=== PATIENT | female | born 1975 | race African-American/Black ===

== ENCOUNTER 2016-11-20 08:37 | Emergency (ER) | payer MEDICARE, MEDICAID ==
[~2016-11-20] VITALS: Ht 170.2 cm; Wt 93.0 kg
[2016-11-20 08:54] VITALS: BP 119/80
== END 2016-11-20 09:31 | disposition home or self-care (01) ==
LOC: ER 08:37
DX: J02.9 Acute pharyngitis, unspecified (principal); E11.9 Type 2 diabetes mellitus without complications; I10 Essential (primary) hypertension; F17.210 Nicotine dependence, cigarettes, uncomplicated

== ENCOUNTER 2018-08-11 07:27 | Emergency (ER) | payer MEDICAID, MEDICARE ==
[~2018-08-11] VITALS: Ht 170.2 cm; Wt 83.9 kg
[2018-08-11 07:49] LABS: Urine Bacteria FEW /hpf (None Seen); Urine Blood Negative /uL (Negative); Urine Specific Gravity 1.011 (1.001-1.035); Urine WBC 3 /hpf (0 - 5)
[2018-08-11 08:51] LABS: Basophils # (auto) 0 uL; Basophils % (auto) 0.5 % (0.0-2.0); Eosinophils # (auto) 0.1 uL; Eosinophils % (auto) 1.5 % (0.0-7.0); Hematocrit 37.9 % (36.0-46.0); Hemoglobin 12.8 g/dL (12.2-16.2); Lymphocytes # (auto) 1.3 uL; Lymphocytes % (auto) 24.8 % (10.0-50.0); Mean Corpuscular Hemoglobin 30.6 pg (28.0-32.0); Mean Corpuscular Hgb Conc. 33.6 g/dL (32.0-36.0); Mean Corpuscular Volume 90.9 fL (80.0-100.0); Monocytes # (auto) 0.5 uL; Monocytes % (auto) 8.5 % (0.0-12.0); Neutrophils # (auto) 3.5 uL; Neutrophils % (auto) 64.7 % (37.0-80.0); Platelet Count (auto) 223 10^3/uL (140-450); Red Blood Cells 4.17 10^6/uL (4.0-5.20); Red Cell Distribution Width 14.1 % (11.8-14.3); White Blood Cell 5.4 10^3/uL (4.4-10.8)
[2018-08-11 09:05] LABS: Albumin 3.2 g/dL (3.4-5.0); BUN/Creatinine Ratio 11.9; Calcium 8.1 mg/dL (8.5-10.1); Potassium 3.9 mmol/L (3.5-5.1)
[2018-08-11 09:08] LABS: Bilirubin, Total 0.2 mg/dL (0.2-1.0); Total Protein 7.1 g/dL (6.4-8.2)
[2018-08-11 09:47] VITALS: BP 119/81
== END 2018-08-11 10:10 | disposition home or self-care (01) ==
LOC: ER 07:27
DX: O23.41 Unspecified infection of urinary tract in pregnancy, first trimester (principal); E11.9 Type 2 diabetes mellitus without complications; I10 Essential (primary) hypertension; Z3A.01 Less than 8 weeks gestation of pregnancy
CPT/HCPCS: 36415; 80053; 81001; 84702; 85025

== ENCOUNTER 2018-09-03 10:41 | Emergency (ER) | payer MEDICARE, MEDICAID ==
[~2018-09-03] VITALS: Ht 170.2 cm; Wt 98.9 kg
[2018-09-03 11:33] LABS: Urine Bacteria MOD /hpf (None Seen); Urine Blood Negative /uL (Negative); Urine Specific Gravity 1.006 (1.001-1.035); Urine WBC 7 /hpf (0 - 5)
[2018-09-03 13:06] LABS: Basophils # (auto) 0 uL; Basophils % (auto) 0.6 % (0.0-2.0); Eosinophils # (auto) 0.2 uL; Eosinophils % (auto) 2.2 % (0.0-7.0); Hematocrit 36.1 % (36.0-46.0); Hemoglobin 12.1 g/dL (12.2-16.2); Lymphocytes # (auto) 1.6 uL; Lymphocytes % (auto) 22.5 % (10.0-50.0); Mean Corpuscular Hemoglobin 30.3 pg (28.0-32.0); Mean Corpuscular Hgb Conc. 33.6 g/dL (32.0-36.0); Mean Corpuscular Volume 90.3 fL (80.0-100.0); Monocytes # (auto) 0.4 uL; Neutrophils # (auto) 4.9 uL; Neutrophils % (auto) 68.7 % (37.0-80.0); Platelet Count (auto) 210 10^3/uL (140-450); Red Blood Cells 3.99 10^6/uL (4.0-5.20); Red Cell Distribution Width 13.9 % (11.8-14.3); White Blood Cell 7.2 10^3/uL (4.4-10.8)
[2018-09-03 13:26] LABS: Albumin 3.2 g/dL (3.4-5.0); BUN/Creatinine Ratio 7.1; Calcium 8.3 mg/dL (8.5-10.1); Potassium 3.7 mmol/L (3.5-5.1)
[2018-09-03 13:29] LABS: Bilirubin, Total 0.2 mg/dL (0.2-1.0); Total Protein 7.1 g/dL (6.4-8.2)
[2018-09-03 15:28] VITALS: BP 150/69
== END 2018-09-03 16:29 | disposition home or self-care (01) ==
LOC: ER 10:42
DX: O23.41 Unspecified infection of urinary tract in pregnancy, first trimester (principal); O34.11 Maternal care for benign tumor of corpus uteri, first trimester; O16.1 Unspecified maternal hypertension, first trimester; O24.911 Unspecified diabetes mellitus in pregnancy, first trimester; Z3A.12 12 weeks gestation of pregnancy
CPT/HCPCS: 36415; 76801; 80053; 81001; 81025; 83690; 84702; 85025